=== PATIENT | male | born 1990 | race Caucasian/White ===

== ENCOUNTER 2017-07-14 15:28 | Emergency (ER) | payer BC ==
[2017-07-14] MEDS ORDERED: Ketorolac 60 MG/2 ML SDV IM ONE (15:48)
[2017-07-14] MEDS ORDERED: Hydrochlorothiazide/Lisinopril 12.5-10 MG Tab PO SCH (16:00)
--- NOTE | 2017-07-14 16:31 | EDM.PDOC ---
ED HPI GENERAL MEDICAL PROBLEM - General Chief Complaint: Cardiovascular Problem Stated Complaint: HIGH BP Time Seen by Provider: 07/14/17 15:45 Source of Information: Reports: Patient History Limitations: Reports: No Limitations - History of Present Illness INITIAL COMMENTS - FREE TEXT/NARRATIVE: 26 years old w m came to he ed due to right foot and ankle swelling for 1-2 days. Pt does not remember any trauma. Pain is worse when attempts to bend his right foot dorsally. He has HTN as well but did not take his meds for a few days. No N/V/D or any other acute medical issues. BP 169/99 temp 36.9 pulse 110 , RR 20 Pulse ox 100% on RA. Onset Date: 07/13/17 Onset Time: 08:00 Duration: Day(s):, Intermittent Location: Reports: Lower Extremity, Right Quality: Reports: Ache, Dull, Stabbing, Throbbing Severity: Moderate Improves with: Reports: Rest Worsens with: Reports: Movement Context: Reports: Trauma (Possible) Associated Symptoms: Reports: No Other Symptoms right ankle Pain Score (Numeric/FACES): 3 - Related Data Allergies Allergy/AdvReac Type Severity Reaction Status Date / Time azithromycin [From Zithromax] Allergy Hives Verified 07/14/17 15:50 Home Meds: Home Meds Lisinopril/Hydrochlorothiazide [Lisinopril-Hctz 10-12.5 mg Tab] 1 each PO DAILY PRN 07/14/17 [History] Social & Family History - Tobacco Use Smoking Status *Q: Never Smoker - Recreational Drug Use Recreational Drug Use: No ED ROS GENERAL - Review of Systems Review Of Systems: See Below Constitutional: Reports: No Symptoms HEENT: Reports: No Symptoms Respiratory: Reports: No Symptoms Cardiovascular: Reports: No Symptoms Endocrine: Reports: No Symptoms GI/Abdominal: Reports: No Symptoms : Reports: No Symptoms Musculoskeletal: Reports: Other (ankle pain right sided) Skin: Reports: No Symptoms Neurological: Reports: No Symptoms Psychiatric: Reports: No Symptoms Hematologic/Lymphatic: Reports: No Symptoms Immunologic: Reports: No Symptoms ED EXAM, GENERAL - Physical Exam Exam: See Below Exam Limited By: No Limitations General Appearance: Alert, WD/WN, Mild Distress Eye Exam: Bilateral Eye: Normal Inspection Ears: Normal External Exam Ear Exam: Bilateral Ear: Auricle Normal Nose: Normal Inspection, Normal Mucosa Throat/Mouth: Normal Inspection, Normal Lips Head: Atraumatic, Normocephalic Neck: Normal Inspection, Supple, Non-Tender, Full Range of Motion Respiratory/Chest: No Respiratory Distress, Lungs Clear, Normal Breath Sounds, No Accessory Muscle Use, Chest Non-Tender Cardiovascular: Normal Peripheral Pulses, Regular Rate, Rhythm, No Edema, No Gallop, No Rub Peripheral Pulses: 1+: Radial (L) GI/Abdominal: Normal Bowel Sounds, Soft, Non-Tender, No Organomegaly, No Abnormal Bruit, Pelvis Stable (Male) Exam: Deferred Rectal (Males) Exam: Deferred Back Exam: Normal Inspection, Full Range of Motion Extremities: Normal Inspection, Normal Range of Motion, Non-Tender, Normal Capillary Refill, Pedal Edema (right ankle) Neurological: Alert, Oriented, CN II-XII Intact, Normal Cognition, Abnormal Gait (r ankle pain) Psychiatric: Normal Affect, Normal Mood Skin Exam: Warm, Dry, Intact, Normal Color, No Rash Lymphatic: No Adenopathy Course - Vital Signs Text/Narrative:: 26 years old w m came to he ed due to right foot and ankle swelling for 1-2 days. Pt does not remember any trauma. Pain is worse when attempts to bend his right foot dorsally. He has HTN as well but did not take his meds for a few days. No N/V/D or any other acute medical issues. BP 169/99 temp 36.9 pulse 110 , RR 20 Pulse ox 100% on RA. PE: Nonpitting edema right foot/ankle Imaging: Ankle Mortis is widened laterally (right ankle) Impression: Right lateral ankle sprain. Tx: Toradol, ICE and air splint right ankle. HCTZ 10/12.5 Reexam: BP improved and his right ankle pain as well. Plan: D/C with instructions Last Recorded V/S: Last Vital Signs Temp Pulse 101 H 07/14/17 16:20 Resp 18 07/14/17 16:20 BP 122/93 H 07/14/17 16:20 Pulse Ox 100 07/14/17 16:20 - Orders/Labs/Meds Meds: Medications Discontinued Medications Generic Name Dose Route Start Last Admin Trade Name Freq PRN Reason Stop Dose Admin Lisinopril/HCTZ 1 tab 07/14/17 16:00 01/29/18 15:58 Lisinopril/Hctz 10-12.5 Mg PO 1 tab DAILY ADIEL Administration Ketorolac Tromethamine 60 mg 07/14/17 15:48 07/14/17 15:57 Toradol IM 07/14/17 15:49 60 mg ONETIME ONE Administration Departure - Departure Time of Disposition: 16:29 Disposition: Home, Self-Care 01 Condition: Good Clinical Impression: Right ankle sprain Qualifiers: Encounter type: initial encounter Involved ligament of ankle: calcaneofibular ligament Qualified Code(s): S93.411A - Sprain of calcaneofibular ligament of right ankle, initial encounter Instructions: Ankle Sprain Referrals: Yovani Puente MD [Primary Care Provider] - Forms: ED Department Discharge Additional Instructions: ICE, rest and elevation, please f/u in one week, come back to the ED if your symptoms get worse acutely
--- NOTE | 2017-07-15 08:18 | CR ---
INDICATION: Pain, heard a pop after getting out of truck and almost falling on ice. RIGHT FOOT: Three views of the right foot revealed soft tissue swelling laterally at the level of the cuboid. A fracture, dislocation, or other significant bone or joint abnormality was not identified. Report was called to Dr. Macias immediately after the examination was completed , 07/14/2017. CLAIRE
--- NOTE | 2017-07-15 08:19 | CR ---
INDICATION: Pain, heard a pop after getting out of truck and almost falling on ice. RIGHT ANKLE: Three views of the right ankle were obtained and revealed mild soft tissue swelling about the ankle. There is some widening of the ankle mortise laterally, raising question of ligamental injury laterally. This should be correlated clinically. Stress views and/or MRI may be helpful for further evaluation. No overt fracture or dislocation was seen, however - no other bone or joint abnormality was suggested. IMPRESSION: Slight widening of the ankle mortise laterally, raising question of ligamental injury laterally. Follow-up stress views or MRI may be helpful for confirmation, as felt to be clinically necessary. Report was called to Dr. Macias immediately after the examination was completed , 07/14/2017. CLAIRE
== END 2017-07-14 16:35 | disposition home or self-care (01) ==
LOC: FB.ED 15:28
DX: S93.411A Sprain of calcaneofibular ligament of right ankle, initial encounter (principal); I10 Essential (primary) hypertension; Z79.899 Other long term (current) drug therapy; Z88.1 Allergy status to other antibiotic agents; X58.XXXA Exposure to other specified factors, initial encounter
CPT/HCPCS: 73610-RT; 73630-RT; 99283; A9270-GY; J1885